=== PATIENT | male | born 1990 | race Caucasian/White ===

== ENCOUNTER 2016-10-01 12:01 | Emergency (ER) | payer OTHER | END 2016-10-01 15:28 | disposition home or self-care (01) | LOC: D.ER 12:01 | DX: G89.18 Other acute postprocedural pain (principal); M25.512 Pain in left shoulder; M25.511 Pain in right shoulder; V29.9XXA Motorcycle rider (driver) (passenger) injured in unspecified traffic accident, initial encounter; Y93.89 Activity, other specified; Y92.89 Other specified places as the place of occurrence of the external cause; Z98.890 Other specified postprocedural states ==

== ENCOUNTER 2016-10-02 16:57 | Emergency (ER) | payer OTHER | END 2016-10-02 17:55 | disposition home or self-care (01) | LOC: D.ER 16:57 | DX: M25.512 Pain in left shoulder (principal); M54.9 Dorsalgia, unspecified; M54.2 Cervicalgia; R60.0 Localized edema; F17.200 Nicotine dependence, unspecified, uncomplicated ==